=== PATIENT | female | born 2000 | race Caucasian/White ===

== ENCOUNTER 2025-06-27 06:18 | Day surgery (SDC) | payer BC, OTHER, SELFPAY ==
--- NOTE | 2025-06-24 14:25 | PTCARENOTE ---
Patient took Ozempic 06/23/25, Anesthesia notified, Patient to maintain clear liquid diet for the day prior to surgery. Mother of patient made aware of instructions.
[2025-06-27 11:00] VITALS: BMI 29.3
[2025-06-27 11:01] VITALS: BMI 29.3
[2025-06-27 11:02] VITALS: BP 93/59
[2025-06-27 11:20] LABS: Glucose - Point of Care 84 mg/dl (70-99)
[2025-06-27 13:15] VITALS: BP 94/40; BP_SYST 16
[2025-06-27] MEDS: DILAUDID 0.25 MG IV (13:23)
[2025-06-27 13:30] VITALS: BP 93/55; BP_SYST 17
[2025-06-27 13:33] LABS: Glucose - Point of Care 76 mg/dl (70-99)
--- NOTE | 2025-06-27 13:42 | W.IMMPOSTOP ---
Surgical Immed Post Op Note
-
Primary Surgeon: Sonia Lainez DO
Assisting Surgeon: none
Pre-op Diagnosis: Irregular bleeding, PCOS
Post-op Diagnosis: same
Procedure Performed: Hysteroscopy D&C, insertion Mirena IUD
Anesthesia Type: MAC IV sedation
Specimen / Cultures: endometrial curettings
Estimated Blood Loss: 1ml
Complications: none
Operative Findings: Normal appearing endometrial cavity, bilateral tubal ostia seen.
Uterus sounded to 8 cm.
Mirena IUD # [id number]
Exp Aug 2027
Lot# [id number]
Stable to recovery.
[2025-06-27 13:45] VITALS: BP_SYST 15
[2025-06-27 14:00] VITALS: BP 92/59; BP_SYST 14
[2025-06-27 14:30] VITALS: BP 111/88
== END 2025-06-27 15:00 | disposition home or self-care (01) ==
LOC: SDS 06:18
PROVIDERS: ATTENDING PHYSICIAN Obstetrics & Gynecology
DX: E28.2 Polycystic ovarian syndrome (principal); N93.8 Other specified abnormal uterine and vaginal bleeding; F79 Unspecified intellectual disabilities; N97.0 Female infertility associated with anovulation; N92.6 Irregular menstruation, unspecified
CPT/HCPCS: 58558; 58300; 82962; 88305